=== PATIENT | female | born 1965 | race Caucasian/White ===

== ENCOUNTER 2021-10-12 16:46 | Emergency (ER) | payer OTHER ==
[2021-10-12 18:06] LABS: HEMOGLOBIN 11.6 gm/dl (12.3-15.3); RED BLOOD COUNT 3.69 M/UL (4.00-5.10); WHITE BLOOD COUNT 4.3 K/UL (4.5-11.0)
== END 2021-10-13 04:33 | disposition home or self-care (01) ==
LOC: ER1 16:46
PROVIDERS: Physician Assistant Medical
DX: U07.1 COVID-19 (principal); N18.9 Chronic kidney disease, unspecified; E87.5 Hyperkalemia; Z99.2 Dependence on renal dialysis
CPT/HCPCS: 71045; 80053; 84132; 85025; 93005; 96374; 99284; J1940; U0002